=== PATIENT | male | born 1990 | race Caucasian/White ===

== ENCOUNTER 2017-12-04 10:48 | Emergency (ER) | payer SELFPAY | END 2017-12-04 12:47 | disposition left against medical advice (07) | LOC: E/R 12:47 | DX: Z53.21 Procedure and treatment not carried out due to patient leaving prior to being seen by health care provider (principal) ==

== ENCOUNTER 2018-03-21 23:19 | Emergency (ER) | payer BC ==
[2018-03-22] MEDS: predniSONE 20 MG TAB PO (00:53)
[2018-03-22] MEDS: ALBUTEROL 0.083% (NEB) 2.5 MG/3 ML AMP HHN (00:56)
== END 2018-03-22 01:36 | disposition home or self-care (01) ==
LOC: FTE 23:19
DX: J20.9 Acute bronchitis, unspecified (principal)
CPT/HCPCS: 94664; 99283-25